=== PATIENT | male | born 1960 | race Caucasian/White ===

== ENCOUNTER 2020-11-20 13:02 | Emergency (ER) | payer BC, OTHER ==
[~2020-11-20] VITALS: Ht 182.9 cm; Wt 104.3 kg
[2020-11-20 13:50] VITALS: BP 148/73
== END 2020-11-20 13:50 | disposition home or self-care (01) ==
LOC: ER 13:02
DX: F10.129 Alcohol abuse with intoxication, unspecified (principal)

== ENCOUNTER 2020-11-23 10:50 | Emergency (ER) | payer BC, OTHER ==
[~2020-11-23] VITALS: Ht 182.9 cm; Wt 104.3 kg
--- NOTE | ~2020-11-23 | EMS ---
[facility] [address] [place] [address] EMS Patient Care Report Name: FELICITA METCALF Room #: PRE ELIZABETH M.R.#: [id number] Admission: Attend Phys: Discharge: Date of : 64 Report #: [id number] THIS REPORT FOR: //name// Report Transmitted: 11/23/2020 10:40 EMS Care Summary [place], [place]/[facility] Incident [id number] @ 11/23/2020 10:05 Incident Location [address] [place] [id number] Patient FELICITA METCALF Male, 60 Years 1960 Patient Address [address] [place] [address] [place] [address] Patient History Hypertension (HTN),Hyperlipidemia,Atrial Fibrillation,Alcohol Abuse, Patient Allergies Lisinopril, Patient Medications Eliquis, Metformin, Clonidine, Ativan, Diclofenac, Gabapentin, Losartan, Thiamine, Atorvastatin, Metoprolol, Chief Complaint HYPERTENSION Disposition Transported No Lights/[place] Dispatch Reason Diabetic Problem Transported To [facility] Narrative DISPATCHED NON EMERGENCY ON A DIABETIC PROBLEM. 60 Y/O MALE AMBULATING WITHOUT INCIDENT TOWARD AMBULANCE AND APPEARING IN NO IMMEDIATE DISTRESS. GCS 15 AND A/OX4. PT HAS CONSENTED FOR TX AND TRANSPORTATION. NURSE OF [facility] [address] [place] [address] EMS Patient Care Report Name: FELICITA METCALF Room #: PRE ER M.R.#: [id number] Admission: Attend Phys: Discharge: Date of : 64 Report #: [id number] CENTER REPORTS TO EMS THAT PT'S BLOOD PRESSURES HAVE BEEN INCREASED X2 DAYS. PT HAS BEEN TAKING HIS REGULAR B/P MEDICATIONS SCHEDULED AND SHE GAVE HIM AN ADDTIONAL 2 DOSES OF CLONIDINE TODAY AND HIS BLOOD PRESSURE HAS STILL BEEN INCREASING. V/S'S OBTAINED PRIOR TO EMS ARRIVAL BY NURSE OF FACILITY. ASSISTED WITHOUT INCIDENT TO AMBULANCE. V/S'S OBTAINED. B/P IS INCREASED. PT DENIES ANY OTHER MEDICAL COMPLAINTS. TRANSPORTED TO [facility]. REASSESSED ENROUTE. REMAINS GCS 15 AND A/OX4. V/S'S OBTAINED AND B/P REMAINS INCREASED. REPORT CALLED TO HOSPITAL. ASSISTED WITHOUT INCIDENT TO ER HOSPITAL BED 6. PT CARE TRANSFERRED TO ED RN. Initial Vitals @PTAP: 64,BP: 220/112, @10:38P: 71,R: 16,BP: 191/120,Pain: 0/10,GCS: 15,CO: 2,SpO2: 95,Revised Trauma: 12, @10:33P: 75,R: 16,BP: 194/95,Pain: 0/10,GCS: 15,Revised Trauma: 12, Assessments @10:28MENTAL:Place Oriented,Time Oriented,Person Oriented,Event Oriented,SKIN:HEENT:Head/Face: No Abnormalities,Neck/Airway: No Abnormalities,LUNG SOUNDS:General: No Abnormalities,ABDOMEN:General: No Abnormalities,PELVIS//GI:EXTREMITIES:Capillary Refill: Right Upper: < 2 Sec,Capillary Refill: Left Upper: < 2 Sec,Left Arm: No Abnormalities,Right Arm: No Abnormalities,Left Leg: No Abnormalities,Right Leg: No Abnormalities,PULSE:Radial: 2+ Normal,NEURO:No Abnormalities, Impression Hypertension Procedures @10:28ALS AssessmentResponse: UnchangedSucceeded@10:30StretcherResponse: Unchanged Timeline BREAK UP WORKER,BP: 220/112 M,PULSE: 64,RR: R,SPO2: Ox,ETCO2: ,BG: ,PAIN: ,GCS: , 10:04,Call Received 10:04,Dispatch Notified 10:05,Dispatched 10:06,En Route 10:26,On Scene 10:28,At Patient 10:28,ALS Assessment,Response: UnchangedSucceeded, 10:30,Stretcher,Response: Unchanged 10:33,BP: 194/95 M,PULSE: 75,RR: 16 R,SPO2: Ox,ETCO2: ,BG: ,PAIN: 0,GCS: 15, 10:38,BP: 191/120 M,PULSE: 71,RR: 16 R,SPO2: 95 Ox,ETCO2: ,BG: ,PAIN: 0,GCS: 15, 10:39,Depart Scene [facility] [address] [place] [address] EMS Patient Care Report Name: METCALFFELICITA Room #: PRE M.R.#: [id number] Admission: Attend Phys: Discharge: Date of : 64 Report #: [id number] 10:49,At Destination 11:04,Call Closed Disclaimer [email or web address] Copyright 2020 [employer] This EMS Care Summary contains data elements from the applicable legal record (which may be displayed differently). It is designed to provide pertinent information for the following purposes: continuity of care, clinical quality, and state data reporting. The complete legal record is available to ED staff and administrators of the receiving hospital in [employer]'s Patient Tracker. All data is provided "as is."
[2020-11-23 11:31] LABS: CALCIUM 8.9 mg/dL (8.5-10.1); CREATININE 1.1 mg/dL (0.7-1.3); POTASSIUM 4.7 mmol/L (3.5-5.1)
[2020-11-23 11:33] LABS: URINE BILIRUBIN NEGATIVE (Negative); URINE BLOOD NEGATIVE (Negative); URINE CLARITY CLEAR; URINE COLOR YELLOW; URINE GLUCOSE-RANDOM* NEGATIVE (Negative); URINE KETONES NEGATIVE (Negative); URINE LEUKOCYTES-REFLEX NEGATIVE (Negative); URINE NITRITE-REFLEX NEGATIVE (Negative); URINE PROTEIN (DIPSTICK) NEGATIVE (Negative); URINE SPECIFIC GRAVITY 1.015 (1.005-1.035); URINE UROBILINOGEN 0.2 E.U./dl (0.2-1.0)
[2020-11-23] MEDS ORDERED: HYDRALAZINE 2525 MG PO (12:45)
[2020-11-23 13:00] VITALS: BP 155/86
--- NOTE | 2020-11-23 13:02 | EKG ---
[address] [place] [address] ELECTROCARDIOGRAM REPORT Name: FELICITA METCALF Room #: REG ELIZABETH Brunner#: [id number] Admission: 11/23/20 Attend Phys: Discharge: Date of : 64 Report #: [id number] [facility] ED Test Date: 2020-11-23 Test Time: 10:58:04 Pat Name: EFLICITA METCALF Department: Room: Gender: M Airline Radio Operator: ADILSON BURNHAM : 1960 Requested By: Nell Monsalve Order Number: [id number] MD: Amrik Vivar Measurements Intervals [place] Rate: 68 P: [place]: QRS: 28 QRSD: 105 T: 35 QT: 434 QTc: 462 Interpretive Statements Sinus rhythm Normal tracing No previous ECG available for comparison Electronically Signed On 11-23-2020 13:02:37 CDT by Amrik Vivar [email or web address] <ELECTRONICALLY SIGNED> By: Amrik Vivar MD, [facility] 11/23/20 1302 1058 1058 Amrik Vivar MD, FACC /EPI
== END 2020-11-23 13:00 | disposition home or self-care (01) ==
LOC: ER 10:50
PROVIDERS: Emergency Medicine
DX: I10 Essential (primary) hypertension (principal); E78.5 Hyperlipidemia, unspecified; F41.9 Anxiety disorder, unspecified; F32.9 Major depressive disorder, single episode, unspecified; Z88.8 Allergy status to other drugs, medicaments and biological substances